=== PATIENT | male | born 1970 | race Caucasian/White ===

== ENCOUNTER 2020-01-30 11:18 | Emergency (ER) | payer SELFPAY ==
[~2020-01-30] VITALS: Ht 188 cm; Wt 95.3 kg
--- NOTE | 2020-01-30 11:20 | NUR ---
[facility] EMT CLEANED HEMATOMA
[2020-01-30 11:21] VITALS: BP 128/83
--- NOTE | 2020-01-30 11:26 | NUR ---
PT PRESENTS WITH HEMATOMA TO L PARIETAL REGION. BLEEDING CONTROLLED. PER , PT SLIPPED AND FELL DOWN STAIRS (APPROX 20 MIN PRIOR TO ARRIVAL) HITTING BACK OF HEAD. PT ALSO HAS 2 ABRASIONS TO INNER LIP. TONGUE INTACT. SPEECH CLEAR. PUPILS PERRL. PT ALERT AND AWAKE, AMBULATORY TO BED WITH STEADY GAIT. -LOC DENIES BLOOD THINNERS DENIES PMH
--- NOTE | 2020-01-30 11:27 | NUR ---
PT DENIES N/V, OR H/A OR BLURRY VISION
--- NOTE | 2020-01-30 11:31 | NUR ---
Dr. Novak is evaluating the patient at bedside.
--- NOTE | 2020-01-30 11:32 | NUR ---
PT NOW ADMITS SOME BLURRY VISION
--- NOTE | 2020-01-30 11:41 | NUR ---
PT TO CT SCAN VIA [facility]
--- NOTE | 2020-01-30 11:53 | NUR ---
Patient returned from CT scan. RN re-evaluating patient at bedside.
--- NOTE | 2020-01-30 12:10 | NUR ---
TDAP ADMINISTERED, CONSENT OBTAINED
--- NOTE | 2020-01-30 12:16 | NUR ---
DR ANGEL AT BEDSIDE FOR STAPLE PLACEMENT
[2020-01-30] MEDS ORDERED: KETOROLAC 60 MG/2 ML VIAL IM ONE (12:20)
--- NOTE | 2020-01-30 12:28 | NUR ---
[facility] IM ADMINISTERED
[2020-01-30 12:48] VITALS: BP 138/76
--- NOTE | 2020-01-30 12:48 | NUR ---
NADR, PAIN 12/13
--- NOTE | 2020-01-30 12:48 | NUR ---
Patient discharged with v/s stable. Written and verbal after care instructions given and explained TO PT AND FAMILY AT CAR. Patient alert, oriented and verbalized understanding of instructions. PT VIA WHEELCHAIR TO FAMILYS CAR. All questions addressed prior to discharge. ID band removed. Patient advised to follow up with PMD. Rx of MOTRIN given. Patient educated on indication of medication including possible reaction and side effects. Opportunity to ask questions provided and answered. GIVEN COPY OF CT SCAN-WNL INSTRUCTED TO FOLLOW UP WITH PCP IN REGARDS TO WOUND CHECK 2-3 DAYS AND STAPLE REMOVAL 5-7 DAYS FAMILY GIVEN EXTRA SUPPLIES FOR BANDAGE CHANGE TO HEAD.
== END 2020-01-30 12:47 | disposition home or self-care (01) ==
LOC: MED 11:18
DX: S01.01XA Laceration without foreign body of scalp, initial encounter (principal); W18.39XA Other fall on same level, initial encounter; Y93.89 Activity, other specified; Y92.89 Other specified places as the place of occurrence of the external cause; Y99.8 Other external cause status
CPT/HCPCS: 12013; 70450; 90471; 90715; 96372; 99284; J1885

== ENCOUNTER 2020-02-01 11:25 | Emergency (ER) | payer SELFPAY ==
[~2020-02-01] VITALS: Ht 195.6 cm; Wt 93.0 kg
--- NOTE | 2020-02-01 11:32 | NUR ---
Patient ambulated to bed 2. RN evaluating patient at bedside.
[2020-02-01 11:33] VITALS: BP 132/78
--- NOTE | 2020-02-01 11:36 | NUR ---
49 Y/O M C/C RECHECK SUTURE ON LEFT OCCIPITAL REGION. SUTURES DONE X 2 DAYS AGO. PAIN 4/10,PRESSURE SENSATION, NON RADIATING. NO OTHER S/S. PT NKA. NO HX. NO RX. NO NVD. NEURO WNL. SIDE RAIL X1.
--- NOTE | 2020-02-01 12:28 | NUR ---
Dr. Nair is evaluating the patient at bedside.
[2020-02-01 12:48] VITALS: BP 132/78
--- NOTE | 2020-02-01 12:48 | NUR ---
Patient discharged with v/s stable. Written and verbal after care instructions given and explained. Patient verbalized understanding. Ambulatory with steady gait. All questions addressed prior to discharge. Advised to follow up with PMD.
== END 2020-02-01 12:48 | disposition home or self-care (01) ==
LOC: MED 11:25
DX: S01.01XD Laceration without foreign body of scalp, subsequent encounter (principal); X58.XXXD Exposure to other specified factors, subsequent encounter
CPT/HCPCS: 99281

== ENCOUNTER 2020-02-04 14:33 | Emergency (ER) | payer SELFPAY ==
[~2020-02-04] VITALS: Ht 175.3 cm; Wt 90.7 kg
--- NOTE | 2020-02-04 14:39 | NUR ---
Ambulated to bed 4
[2020-02-04 14:41] VITALS: BP 154/85
--- NOTE | 2020-02-04 14:49 | NUR ---
49 YO MALE PRESENTS TO ER TO HAVE SUTURES REMOVED.
[2020-02-04] MEDS ORDERED: BACITRACIN OINT 500 UNITS/GM PKT TP ONE ×2 (14:52→14:55)
--- NOTE | 2020-02-04 14:55 | NUR ---
3 DRU REMOVED FROM PTS PARIETAL REGION
[2020-02-04 14:59] VITALS: BP 154/85
== END 2020-02-04 15:01 | disposition home or self-care (01) ==
LOC: MED 14:33
DX: S01.01XD Laceration without foreign body of scalp, subsequent encounter (principal); W18.39XD Other fall on same level, subsequent encounter
CPT/HCPCS: 99281